=== PATIENT | male | born 1950 | race Caucasian/White ===

== ENCOUNTER 2017-07-29 09:40 | Emergency (ER) | payer OTHER ==
[~2017-07-29] VITALS: Ht 185.4 cm; Wt 97.1 kg
--- NOTE | 2017-07-29 09:44 | ED GENERAL ADULT ---
History of Present Illness General Chief Complaint: Syncope and Near-Syncope Stated Complaint: SYNCOPE Source: patient Exam Limitations: no limitations Triage Note: PT BIBA FOR SYNCOPE SINCE THIS MORNING, +N/V. PT ALERT AND ORIENTED, DENIES CP, DENIES SOB Triage Nurses Notes Reviewed? yes Onset: Abrupt Duration: hour(s):, constant, getting worse Timing: recent history Injury Environment: home No Modifying Factors: none HPI: 67-year-old male comes in the emergency room for further evaluation of dizziness and vomiting. Patient reports that when he woke up this morning and sat up he felt profoundly dizzy like the room was spinning around. He reports that he felt sweaty. Denies any complete loss of consciousness. Went to use the bathroom and had a bowel movement. He reports the dizziness persisted and he felt like he was given a topical over but never lost consciousness and never fell. He denies any associated chest pain or shortness of breath. Symptoms have persisted. Denies any prior history of ever having these type of symptoms. He has a history of 3 cardiac stents and a history of hypertension and hyperlipidemia. He also takes a baby aspirin. Denies any headache. Denies any diarrhea and chills body aches. Denies any other associates symptoms. (Ankush BLEVINS,Ovidio) Vital Signs & Intake/Output Vital Signs & Intake/Output Vital Signs Date Time Temp Pulse Resp B/P B/P Pulse O2 O2 Flow FiO2 Mean Ox Delivery Rate 07/29 1410 98.0 64 18 177/97 98 Room Air 07/29 1409 64 177/87 07/29 1202 98.0 62 18 136/66 97 Room Air 07/29 0943 98.5 58 18 169/71 99 Room Air Allergies Coded Allergies: No Known Allergies (07/29/17) Reconcile Medications Atorvastatin Calcium 40 MG TABLET 1 TAB PO DAILY CHOLESTEROL (Reported) Lisinopril 20 MG TABLET 1 TAB PO DAILY HTN (Reported) Meclizine HCl 25 MG TABLET 1 TAB PO TIDPRN DIZZINESS Metoprolol Tartrate 100 MG TABLET 1 TAB PO BID HTN (Reported) Ondansetron (Zofran Odt) 4 MG TAB.RAPDIS 1 TAB SL TID NAUSEA (Randee AREVALO,Maegan) Past History Medical History Any Pertinent Medical History? see below for history Cardiovascular: hypertension, hyperlipidemia Surgical History Surgical History: non-contributory Psychosocial History What is your primary language Bulgarian Family History Hx Contributory? No (Ovidio Guillermo) Review of Systems Review of Systems Constitutional: Reports: no symptoms. EENTM: Reports: no symptoms. Respiratory: Reports: no symptoms. Cardiovascular: Reports: see HPI. GI: Reports: no symptoms. Genitourinary: Reports: no symptoms. Musculoskeletal: Reports: no symptoms. Skin: Reports: no symptoms. Neurological/Psychological: Reports: no symptoms. Hematologic/Endocrine: Reports: no symptoms. Immunologic/Allergic: Reports: no symptoms. All Other Systems: Reviewed and Negative (Ovidio Guillermo) Physical Exam Physical Exam General Appearance: well developed/nourished, alert, awake Head: atraumatic Eyes: Bilateral: normal appearance. Ears, Nose, Throat: normal ENT inspection, hearing grossly normal Neck: normal inspection Respiratory: normal breath sounds, no respiratory distress Cardiovascular: regular rate/rhythm Gastrointestinal: soft Back: normal inspection Extremities: normal inspection Neurologic/Psych: no motor/sensory deficits, awake, alert, oriented x 3, normal gait, normal mood/affect Skin: intact, normal color Core Measures ACS in differential dx? Yes CVA/TIA Diagnosis: No Sepsis Present: No Sepsis Focused Exam Completed? No (Ovidio Guillermo) Progress Differential Diagnoses I considered the following diagnoses in my evaluation of the patient: Cardiac arrhythmia, NH, benign positional vertigo, intracranial bleed, electrolyte imbalance, valvular abnormality Plan of Care: Orders Procedure Date/time Status TROPONIN LEVEL 07/29 1300 Complete EKG 07/29 1300 Active MISTAKE 07/29 0946 Active Telemetry/Learning And Development Officer 07/29 0943 Active THYROID STIMULATING HORMONE 07/29 0943 Complete TROPONIN LEVEL 07/29 0943 Complete COMPREHENSIVE METABOLIC PANEL 07/29 0943 Complete CBC WITHOUT DIFFERENTIAL 07/29 0943 Complete EKG 07/29 0943 Active Laboratory Tests 07/29/17 1310: Troponin I < 0.01 07/29/17 0957: Anion Gap 18 H, Estimated GFR > 60, BUN/Creatinine Ratio 21.8, Glucose 185 H, Calcium 9.2, Total Bilirubin 1.1, AST 27, ALT 49, Alkaline Phosphatase 92, Troponin I < 0.01, Total Protein 7.1, Albumin 4.2, Globulin 2.9, Albumin/ Globulin Ratio 1.4, TSH 1.930, CBC w Diff NO MAN DIFF REQ, RBC 4.59 L, MCV 87.7 , MCH 30.5, RDW 13.0, MPV 8.0, Gran % 63.9, Lymphocytes % 27.9, Monocytes % 4.9, Eosinophils % 2.8, Basophils % 0.5, Absolute Granulocytes 4.8, Absolute Lymphocytes 2.1, Absolute Monocytes 0.4, Absolute Eosinophils 0.2, Absolute Basophils 0, PUBS MCHC 34.8 Diagnostic Imaging: Viewed by Me: Radiology Read. Discussed w/RAD: Radiology Read. Radiology Impression: PATIENT: TRISTEN WILKES PRESENT AGE: 67 PATIENT ACCOUNT NO: [id number] : 49 LOCATION: [facility] ORDERING PHYSICIAN: Ovidio BLEVINS SERVICE DATE: 07/29/17 EXAM TYPE : RAD - XRY-PORTABLE CHEST XRAY EXAMINATION: XR PORTABLE CHEST CLINICAL INFORMATION: Near syncope COMPARISON: 08/24/2007 TECHNIQUE: Portable frontal view of the chest was obtained. FINDINGS: Lung volumes are symmetric. No focal consolidation is seen. No evidence of pneumothorax, pleural effusion, or pulmonary edema. The cardiomediastinal contour is unremarkable. No acute osseous findings are seen. IMPRESSION: No acute cardiopulmonary findings. DICTATED BY: Kyle Odom MD DATE/TIME DICTATED:07/29/171038 LINE LEADER:HARLEY DATE/TIME TRANSCRIBED:07/29/171038 CONFIDENTIAL, DO NOT COPY WITHOUT APPROPRIATE AUTHORIZATION. <Electronically signed in Other Vendor System> SIGNED BY: Kyle Odom MD 07/29/17 1048 Initial ED EKG: normal sinus rhythm, rate (61), RBBB Prior EKG: changed Repeat EKG: unchanged Comments: 07/29/1128 am Spoke with slitting machine operator helper Dr. Nguyễn. She reports that the bundle branch block is old according to their records there. EKG being faxed over. 07/29/2017 2:18:48 PM Comparing to other EKG patient has an unchanged EKG. A second troponin is negative. He is asymptomatic now. His dizziness has resolved. He is able to stand and ambulate. Reevaluated multiple times. Return if any concerns worsening symptoms. Patient understands and agrees with plan of care. case discussed with dr laureano. (Ankush BLEVINS,Ovidio) Departure Departure Disposition: HOME OR SELF CARE Condition: Stable Clinical Impression Primary Impression: Vertigo Referrals: Brody AREVALO,Luna (PCP/Family) Additional Instructions: Take meclizine and Zofran as prescribed. Follow-up with ear nose and throat doctor. Follow-up with your PCP. Return if any other concerns/worsening of symptoms. Please go over all results of today's visit with your primary care doctor. Contact your primary care doctor to let them know you were here in the emergency room. There may be nonspecific findings which may not be related to your visit today here in the emergency room but may require further evaluation and chronic monitoring by your primary care doctor. If you had a laceration today the chance of foreign body always remains. You should follow-up with your primary care doctor for recheck in 3-5 days for a wound check. If you had an x-ray done there is a chance that a fracture could have been missed on initial read and you should follow-up with your primary care doctor for repeat x-rays if symptoms persist. If your blood pressure was elevated here in the emergency room please have rechecked by [facility] primary care doctor within the next 48. If you were prescribed a narcotic here in the emergency room or any type of controlled substances you're not allowed to drive while taking this medication or operate any type of heavy machinery. Narcotics can make you feel lightheaded dizziness nausea and can cause constipation. You may need to steel pickler a stool softener. Thank you for choosing [facility] emergency room. Please return to the emergency room immediately if you have any other concerns worsening of symptoms. Departure Forms: Customer Survey General Discharge Information Prescriptions: Current Visit Scripts Meclizine HCl 1 TAB PO TIDPRN #30 TAB Ondansetron (Zofran Odt) 1 TAB SL TID #10 TAB (Ovidio Guillermo) PA/COSTUME SHOP COORDINATOR Co-Sign Statement Statement: ED Attending supervision documentation- [X] I saw and evaluated the patient. I have also reviewed all the pertinent lab results and diagnostic results. I agree with the findings and the plan of care as documented in the PA's/COSTUME SHOP COORDINATOR's documentation. [X] I have reviewed the ED Record and agree with the PA's/COSTUME SHOP COORDINATOR's documentation. [] Additions or exceptions (if any) to the PAs/COSTUME SHOP COORDINATOR's note and plan are summarized below: [] (Randee AREVALO,Maegan) Critical Care Note Critical Care Note Critical Care Time: non-applicable (Ovidio Guillermo)
[2017-07-29 10:16] LABS: ABSOLUTE BASOPHIL COUNT 0 /CUMM (0.0-0.2); ABSOLUTE EOSINOPHIL COUNT 0.2 /CUMM (0.0-0.7); ABSOLUTE GRANULOCYTE CT 4.8 /CUMM (1.4-6.5); ABSOLUTE LYMPH COUNT 2.1 /CUMM (1.2-3.4); ABSOLUTE MONOCYTE COUNT 0.4 /CUMM (0.10-0.60); BASOPHIL % 0.5 % (0.0-2.0); EOSINOPHIL % 2.8 % (0-5); GRANULOCYTE % 63.9 % (42.2-75.2); HEMATOCRIT 40.2 % (42-52); MEAN CORPUSCULAR HGB 30.5 PG (27.0-31.0); MEAN CORPUSCULAR HGB CONC 34.8 G/DL (33.0-37.0); MEAN CORPUSCULAR VOLUME 87.7 FL (80.0-94.0); PLATELET COUNT 263 /CUMM (130-400); RED BLOOD CELL CT 4.59 /CUMM (4.70-6.10); WHITE BLOOD CELL COUNT 7.5 /CUMM (4.8-10.8)
[2017-07-29] MEDS ORDERED: METOPROLOL TAR100 M1 PO (10:17)
[2017-07-29] MEDS ORDERED: ATORVASTATIN CA40 M1 PO (10:17)
[2017-07-29] MEDS ORDERED: LISINOPRIL20 M1 PO (10:18)
--- NOTE | 2017-07-29 10:44 | RADIOLOGY REPORT ---
EXAMINATION: XR PORTABLE CHEST CLINICAL INFORMATION: Near syncope COMPARISON: 08/24/2007 TECHNIQUE: Portable frontal view of the chest was obtained. FINDINGS: Lung volumes are symmetric. No focal consolidation is seen. No evidence of pneumothorax, pleural effusion, or pulmonary edema. The cardiomediastinal contour is unremarkable. No acute osseous findings are seen. IMPRESSION: No acute cardiopulmonary findings.
[2017-07-29 14:10] VITALS: BP 177/97
[2017-07-29] MEDS ORDERED: MECLIZINE HCL25 MG PO (14:10)
[2017-07-29] MEDS ORDERED: ZOFRAN ODT4 M1 SL (14:10)
== END 2017-07-29 14:25 ==
LOC: ERH 09:40
PROVIDERS: Physician Assistant Medical
DX: R42 Dizziness and giddiness (principal)
CPT/HCPCS: 71045; 93005; 93010; 96374; J2405